=== PATIENT | male | born 1980 | race Caucasian/White ===

== ENCOUNTER 2017-05-03 23:58 | Emergency (ER) | payer OTHER ==
[~2017-05-03] VITALS: Ht 172.7 cm; Wt 188.2 kg
[~2017-05-03 23:58] MED LIST: ALBU90OI INH; AMOCLA875 PO; ATEN50 PO; CEPH500 PO; CIPR500 PO; CLIN300 PO; CYCL10 PO; Flexeril 10 mg10 MG PO; HYDACE5 PO; HYDCHL12.5 PO; HYDR1TAB94 PO; IBUP800 PO; LIDO2L SS; LISI20 PO; METF500 PO; METPRE4DP PO; Motrin600 MG PO; NAPR550 PO; NEOPOLHCSU OT; Norco 10-325 T1 EACH PO; Norco 5-325 Ta1 EACH PO; Norco 7.5-3251 EACH PO; OMEP20ER PO; OMEP40CA12 PO; OXYACE5T PO; OXYACE7.5T PO; PRED20 PO; PROM25 PO; RXCODGUASY PO; RXCYCL10 PO; RXHYDACE PO; RXNAPNA550 PO; RXNEOPOLHC AU; RXPROM25S PR; SULTRIDS PO; Tenormin50 MG PO
[2017-05-04 01:16] LABS: BASOPHILS ABSOLUTE AUTO 0.03 K/mm3 (0.00-0.23); BASOPHILS PERCENT AUTO 0 % (0-2); EOSINOPHILS ABSOLUTE AUTO 0.11 K/mm3 (0.00-0.68); EOSINOPHILS PERCENT AUTO 1 % (0-6); Hematocrit 41.9 % (37.0-53.0); Hemoglobin 14.6 g/dL (13.5-17.5); IMMATURE GRAN ABSOLUTE AUTO 0.05 K/mm3 (0.00-0.10); IMMATURE GRAN PERCENT AUTO 1 % (0-1); LYMPHOCYTES ABSOLUTE AUTO 2.68 K/mm3 (0.84-5.20); LYMPHOCYTES PERCENT AUTO 25 % (21-46); MONOCYTES ABSOLUTE AUTO 0.87 K/mm3 (0.16-1.47); MONOCYTES PERCENT AUTO 8 % (4-13); Mean Corpuscular HGB 29.5 pg (26.0-34.0); Mean Corpuscular HGB Conc 34.8 g/dL (31.5-36.5); Mean Corpuscular Volume 85 fL (80-100); Mean Platelet Volume 10.7 fL (9.1-12.4); NEUTROPHILS ABSOLUTE AUTO 6.83 K/mm3 (1.96-9.15); NEUTROPHILS PERCENT AUTO 65 % (41-73); Platelet Count 263 K/mm3 (150-400); RDW Coefficient Variation 12.9 % (11.7-14.2); RDW Standard Deviation 39.6 fL (35.1-46.3); Red Blood Cell Count 4.95 M/mm3 (4.30-5.90); White Blood Cell Count 10.57 K/mm3 (4.00-11.30)
[2017-05-04 01:35] LABS: Alanine Aminotransfer (ALT/SGP 69 U/L (12-78); Albumin, Blood 3.8 g/dL (3.4-5.0); Alk Phos 66 U/L (50-136); Anion Gap 7 mmol/L (6-16); Aspartate Aminotrans (AST/SGOT 32 U/L (12-37); Bilirubin, Total 0.5 mg/dL (0.1-1.0); Blood Urea Nitrogen 15 mg/dL (8-24); Bun/Creatinine Ratio 17.4 (12.0-20.0); CO2, Blood 27 mmol/L (21-32); Calcium, Blood 8.6 mg/dL (8.5-10.1); Chloride, Blood 105 mmol/L (98-108); Creatinine, Blood 0.86 mg/dL (0.60-1.20); Globulin, Blood 3.8 g/dL (2.2-4.0); Glomerular Filtration Rate >60 (60-); Glucose, Blood 97 mg/dL (70-99); Potassium, Blood 4.4 mmol/L (3.5-5.5); Sodium, Blood 139 mmol/L (136-145); Total Protein, Blood 7.6 g/dL (6.4-8.2); Troponin I <0.015 ng/mL (0.000-0.040)
[2017-05-04] MEDS ORDERED: Tenormin50 MG PO (02:14)
== END 2017-05-04 02:46 | disposition home or self-care (01) ==
LOC: ER 23:58
PROVIDERS: Physician Assistant
DX: I16.0 Hypertensive urgency (principal); R51 Headache; Z79.899 Other long term (current) drug therapy
CPT/HCPCS: 36415; 71046; 80053; 84484; 85025; 93005; 93010; 96374; 96375; 99283; J1100; J1200; J1885; J2765

== ENCOUNTER 2018-12-29 13:21 | Emergency (ER) | payer OTHER ==
[~2018-12-29] VITALS: Ht 172.7 cm; Wt 204.1 kg
[2018-12-29] MEDS ORDERED: Norco 5-325 Ta1 EACH PO (17:51)
== END 2018-12-29 18:15 | disposition home or self-care (01) ==
LOC: ER 13:21
DX: K40.90 Unilateral inguinal hernia, without obstruction or gangrene, not specified as recurrent (principal); K42.9 Umbilical hernia without obstruction or gangrene; I10 Essential (primary) hypertension; Z79.899 Other long term (current) drug therapy
CPT/HCPCS: 36415; 74177; 99283-25; Q9967

== ENCOUNTER 2023-03-26 02:17 | Emergency (ER) | payer OTHER ==
[~2023-03-26] VITALS: Ht 172.7 cm; Wt 224.5 kg
[~2023-03-26 02:17] MED LIST changes: +AZIT250 PO; +HYDCHL25 PO
[2023-03-26] MEDS ORDERED: Prinivil10 MG (02:57)
[2023-03-26 03:10] LABS: BASOPHILS ABSOLUTE AUTO 0.09 K/mm3 (0.00-0.23); BASOPHILS PERCENT AUTO 1 % (0-2); EOSINOPHILS ABSOLUTE AUTO 0.16 K/mm3 (0.00-0.68); EOSINOPHILS PERCENT AUTO 2 % (0-6); Hematocrit 43.3 % (37.0-53.0); IMMATURE GRAN ABSOLUTE AUTO 0.07 K/mm3 (0.00-0.10); IMMATURE GRAN PERCENT AUTO 1 % (0-1); LYMPHOCYTES PERCENT AUTO 29 % (21-46); MONOCYTES ABSOLUTE AUTO 0.82 K/mm3 (0.16-1.47); MONOCYTES PERCENT AUTO 8 % (4-13); Mean Corpuscular HGB 29.5 pg (26.0-34.0); Mean Corpuscular HGB Conc 34.6 g/dL (31.5-36.5); Mean Corpuscular Volume 85 fL (80-100); NEUTROPHILS ABSOLUTE AUTO 5.84 K/mm3 (1.96-9.15); NEUTROPHILS PERCENT AUTO 60 % (41-73); Platelet Count 266 K/mm3 (150-400); RDW Coefficient Variation 12.3 % (11.7-14.2); RDW Standard Deviation 37.4 fL (35.1-46.3); Red Blood Cell Count 5.09 M/mm3 (4.30-5.90); White Blood Cell Count 9.78 K/mm3 (4.00-11.30)
[2023-03-26 03:25] LABS: Albumin, Blood 3.9 g/dL (3.4-5.0); Bilirubin, Total 0.5 mg/dL (0.1-1.0); Bun/Creatinine Ratio 20.4 (12.0-20.0); Creatinine, Blood 0.83 mg/dL (0.60-1.20); Potassium, Blood 4.2 mmol/L (3.5-5.5); Total Protein, Blood 7.9 g/dL (6.4-8.2)
[2023-03-26 05:17] VITALS: BP 144/69
== END 2023-03-26 06:01 | disposition home or self-care (01) ==
LOC: ER 02:17
PROVIDERS: Emergency Medicine
DX: I49.1 Atrial premature depolarization (principal); G47.33 Obstructive sleep apnea (adult) (pediatric); Z91.199 Patient's noncompliance with other medical treatment and regimen due to unspecified reason; I10 Essential (primary) hypertension; E11.9 Type 2 diabetes mellitus without complications; Z79.899 Other long term (current) drug therapy; Z79.84 Long term (current) use of oral hypoglycemic drugs
CPT/HCPCS: 71046; 80053; 84484; 85025; 93005; 93010; 96374; 96376; 99285-25; A9270; J0360

== ENCOUNTER → 2023-06-12 | Outpatient (CLI) | payer OTHER ==
[~2023-06-12] MED LIST changes: +ACYC400 PO; +FLUC200 PO; +Keflex250 MG PO; +Mupirocin22 GM TOP; +OXYC5 PO; +Prinivil10 MG; +Vibramycin100 MG PO
== END ==
LOC: LAB SHORT 15:15 → LAB 15:15
DX: N34.1 Nonspecific urethritis (principal)
CPT/HCPCS: 87070; 87077; 87147; 87186; 87205

== ENCOUNTER 2023-06-13 18:57 | Emergency (ER) | payer OTHER ==
[~2023-06-13] VITALS: Ht 172.7 cm; Wt 217.7 kg
[~2023-06-13 18:57] MED LIST changes: -ACYC400 PO; -FLUC200 PO; -Keflex250 MG PO; -Mupirocin22 GM TOP; -OXYC5 PO; -Vibramycin100 MG PO
[2023-06-13 19:19] VITALS: BP 160/89
[2023-06-13] MEDS ORDERED: FLUC200 PO (19:24)
[2023-06-13] MEDS ORDERED: Keflex250 MG PO (19:24)
[2023-06-13] MEDS ORDERED: CefTRIAXone 1000 MG Vial IM ONE (20:20)
[2023-06-13] MEDS ORDERED: HYDROcodone 5-APAP 325 TAB PO ONE (20:20)
[2023-06-13] MEDS ORDERED: Doxycycline Hyclate 100 MG TAB PO ONE (20:20)
[2023-06-13] MEDS ORDERED: Norco 5-325 Ta1 EACH PO (20:21)
[2023-06-13] MEDS ORDERED: Vibramycin100 MG PO (20:21)
== END 2023-06-13 20:44 | disposition home or self-care (01) ==
LOC: ER 18:57
DX: N48.1 Balanitis (principal); L73.8 Other specified follicular disorders; I10 Essential (primary) hypertension; E11.9 Type 2 diabetes mellitus without complications; E66.01 Morbid (severe) obesity due to excess calories; Z68.45 Body mass index [BMI] 70 or greater, adult; Z79.84 Long term (current) use of oral hypoglycemic drugs; Z79.899 Other long term (current) drug therapy
CPT/HCPCS: 82947; 96372; 99283-25; A9270; J0696

== ENCOUNTER 2023-06-15 18:34 | Emergency (ER) | payer OTHER ==
[~2023-06-15] VITALS: Ht 172.7 cm; Wt 220.0 kg
[~2023-06-15 18:34] MED LIST changes: +FLUC200 PO; +Keflex250 MG PO; +Vibramycin100 MG PO
[2023-06-15 18:51] VITALS: BP 215/94
[2023-06-16] MEDS ORDERED: OxyCODONE 5 mg/Acetamin 325 mg TABLET PO ONE (00:10)
[2023-06-16] MEDS ORDERED: Acyclovir 200 MG Cap PO ONE (00:10)
[2023-06-16] MEDS ORDERED: ACYC400 PO ×2 (00:11→15:15)
[2023-06-16] MEDS ORDERED: OXYC5 PO ×2 (00:11→15:15)
[2023-06-16] MEDS ORDERED: Mupirocin22 GM TOP ×2 (00:11→15:15)
== END 2023-06-16 00:21 | disposition home or self-care (01) ==
LOC: ER 18:34
DX: A60.01 Herpesviral infection of penis (principal)
CPT/HCPCS: 99282; A9270

== ENCOUNTER 2024-08-20 05:44 | Inpatient (IN) | payer OTHER ==
[2024-08-20] VITALS (15 sets, daily range): BP systolic 157–192; BP diastolic 111–171
[~2024-08-20] VITALS: Ht 172.7 cm; Wt 219.6 kg
[~2024-08-20 05:44] MED LIST changes: +ACYC400 PO; +GLUCOPHAGE1000 M1 PO; +Mupirocin22 GM TOP; +OXYC5 PO
[2024-08-20] MEDS ORDERED: dilTIAZem HCL 30 MG TAB PT ONE ×2 (06:20→07:35)
[2024-08-20] MEDS ORDERED: Diltiazem HCl 5 MG / ML 5ML Vial IV ONE ×2 (06:35→07:40)
[2024-08-20 06:51] LABS: BASOPHILS ABSOLUTE AUTO 0.08 K/mm3 (0.00-0.23); BASOPHILS PERCENT AUTO 1 % (0-2); EOSINOPHILS ABSOLUTE AUTO 0.26 K/mm3 (0.00-0.68); EOSINOPHILS PERCENT AUTO 2 % (0-6); Hemoglobin 15.9 g/dL (13.5-17.5); IMMATURE GRAN PERCENT AUTO 1 % (0-1); LYMPHOCYTES ABSOLUTE AUTO 1.14 K/mm3 (0.84-5.20); LYMPHOCYTES PERCENT AUTO 11 % (21-46); MONOCYTES ABSOLUTE AUTO 0.98 K/mm3 (0.16-1.47); MONOCYTES PERCENT AUTO 9 % (4-13); Mean Corpuscular HGB 29.8 pg (26.0-34.0); Mean Corpuscular HGB Conc 33.8 g/dL (31.5-36.5); Mean Corpuscular Volume 88 fL (80-100); Mean Platelet Volume 10.6 fL (9.1-12.4); NEUTROPHILS ABSOLUTE AUTO 8.13 K/mm3 (1.96-9.15); NEUTROPHILS PERCENT AUTO 76 % (41-73); Platelet Count 234 K/mm3 (150-400); RDW Coefficient Variation 13.2 % (11.7-14.2); RDW Standard Deviation 42.9 fL (35.1-46.3); Red Blood Cell Count 5.33 M/mm3 (4.30-5.90); White Blood Cell Count 10.69 K/mm3 (4.00-11.30)
[2024-08-20 07:21] LABS: Albumin, Blood 3.7 g/dL (3.4-5.0); Albumin/Globulin Ratio 0.9 (0.8-1.8); Bilirubin, Total 0.6 mg/dL (0.1-1.0); Bun/Creatinine Ratio 17.5 (12.0-20.0); Calcium, Blood 8.5 mg/dL (8.5-10.1); Creatinine, Blood 0.91 mg/dL (0.60-1.20); Magnesium, Blood 1.8 mg/dL (1.6-2.4); Potassium, Blood 4.4 mmol/L (3.5-5.5); Total Protein, Blood 7.7 g/dL (6.4-8.2)
[2024-08-20 07:45] LABS: Influenza A, PCR NEGATIVE (NEGATIVE); Influenza B, PCR NEGATIVE (NEGATIVE); Resp Syncytial Virus, PCR NEGATIVE (NEGATIVE); SARS-Cov-2 (COVID-19) PCR, MMC NEGATIVE (NEGATIVE)
[2024-08-20] MEDS ORDERED: Scopolamine Hydrobromide Patch TOP ONE (09:35)
[2024-08-20 12:47] LABS: LDL/HDL RATIO 0.9; Very Low Density Lipoprot Chol 8 mg/dL (6-32)
[2024-08-20 12:49] LABS: Cholesterol 116 mg/dL (50-200); HDL Cholesterol 58 mg/dL (>39); Low Density Lipoprotein Chol 50 mg/dL (0-110); Thyroid Stimulating Hormone 0.671 uIU/mL (0.360-4.800); Triglycerides 41 mg/dL (30-160)
[2024-08-20] MEDS ORDERED: DEPO-TESTO200 MG/1 M IM (14:17)
[2024-08-20] MEDS ORDERED: Ondansetron HCl 2 MG / ML 2ML Vial IV PRN (15:05)
[2024-08-20] MEDS ORDERED: Metoprolol Succinate 25 MG TABCR PO ONE (15:40)
[2024-08-20 16:25] LABS: U Amphetamine Screen Not Detected; U Barbituate Screen Not Detected; U Benzodiazapine Screen Not Detected; U Buprenorphine Screen Not Detected; U Cannabinoids Screen DETECTED; U Cocaine Screen Not Detected; U Methadone Screen Not Detected; U Methamphetamine Screen Not Detected; U Opiates Screen Not Detected; U Oxycodone Screen Not Detected; U Phencyclidine Screen Not Detected
[2024-08-20] MEDS ORDERED: Metoprolol Tartrate 1 MG/ML 5 ML VIAL IV PRN (16:30)
--- NOTE | 2024-08-20 17:05 | NUR ---
PT WAS ED ADMIT. PT HAS C/O SOB WHEN AMBULATING. PT ON RA. PT HAS HIGH BLOOD PRESSURE AND AFIB WITH RVR. SEE CHART FOR STRIPTS. MD AWARE AND PRN PUSHES GIVEN, SEE CHART FOR DETAILS.
[2024-08-20] MEDS ORDERED: HydrALAZINE HCl 20 MG / ML 1ML Vial IV PRN ×2 (18:00→23:00)
[2024-08-20] MEDS ORDERED: Diltiazem HCl 5 MG / ML 5ML Vial IV STA (18:11)
[2024-08-20] MEDS ORDERED: dilTIAZem HCL 125 MG in Dextrose 5% 100 ML IV SCH (18:30)
[2024-08-20] MEDS ORDERED: Metoprolol Succinate 25 MG TABCR PO SCH (21:00)
--- NOTE | 2024-08-20 21:13 | NUR ---
SHIFT SUMMARY AT START OF SHIFT, PT LYING IN BED. CONTINUOUS COUGHING FITS. PT STATES HE IS HAVING INTERMITTENT PAIN. PT IS SUPPOSED TO BE TRANSFERRED TO PCU 18. CALLED TO GIVE REPORT, WAS TOLD ROOM IS NOT CLEANED YET, AND WILL BE CALLED BACK ONCE ROOM IS CLEAN. INFORMED PT WHAT ROOM HE WILL BE GOING TO. PT STATES HE IS SCARED. GAVE PT COOL TOWEL FOR COMFORT AND PROVIDED SUPPORT. 1950, REPORT GIVEN TO PCU NURSE, BUT HAD TO BE CHANGED TO PCU 8. WAITING FOR ROOM TO BE CLEANED. PT TAKEN TO PCU 8.
[2024-08-21] VITALS (16 sets, daily range): BP systolic 133–185; BP diastolic 96–133
--- NOTE | 2024-08-21 04:10 | NUR ---
0340- Spoke with Dr. Vu via phone. Notified of continued BP in 170s/100s and no prns available until 0500. Per Provider change parameter to over 180 sytolic to notify provider. Confirmed plan to restart atenolol with AM medications.
[2024-08-21 04:32] LABS: BASOPHILS ABSOLUTE AUTO 0.07 K/mm3 (0.00-0.23); BASOPHILS PERCENT AUTO 1 % (0-2); EOSINOPHILS ABSOLUTE AUTO 0.26 K/mm3 (0.00-0.68); EOSINOPHILS PERCENT AUTO 2 % (0-6); Hematocrit 46.6 % (37.0-53.0); IMMATURE GRAN ABSOLUTE AUTO 0.08 K/mm3 (0.00-0.10); IMMATURE GRAN PERCENT AUTO 1 % (0-1); LYMPHOCYTES ABSOLUTE AUTO 1.44 K/mm3 (0.84-5.20); LYMPHOCYTES PERCENT AUTO 12 % (21-46); MONOCYTES ABSOLUTE AUTO 1.12 K/mm3 (0.16-1.47); MONOCYTES PERCENT AUTO 9 % (4-13); Mean Corpuscular HGB 30.1 pg (26.0-34.0); Mean Corpuscular HGB Conc 34.3 g/dL (31.5-36.5); Mean Corpuscular Volume 88 fL (80-100); Mean Platelet Volume 10.3 fL (9.1-12.4); NEUTROPHILS ABSOLUTE AUTO 8.98 K/mm3 (1.96-9.15); NEUTROPHILS PERCENT AUTO 75 % (41-73); Platelet Count 237 K/mm3 (150-400); RDW Coefficient Variation 13.5 % (11.7-14.2); Red Blood Cell Count 5.31 M/mm3 (4.30-5.90); White Blood Cell Count 11.95 K/mm3 (4.00-11.30)
[2024-08-21 04:50] LABS: Bun/Creatinine Ratio 17.9 (12.0-20.0); Calcium, Blood 8.5 mg/dL (8.5-10.1); Creatinine, Blood 0.67 mg/dL (0.60-1.20); Potassium, Blood 4.2 mmol/L (3.5-5.5)
--- NOTE | 2024-08-21 05:01 | NUR ---
NURSES NOTE: BLOOD PRESSURE CONTINUES TO BE ELEVATED. PATIENT REQUESTED ALBUTEROL BREATHING TREATMENT. DR SUNG MADE AWARE. CONTINUE WITH SCHEDULED BP MEDICATION PER EMAR. WILL ORDER BREATHING TREATMENT FOR PATIENT.
[2024-08-21] MEDS ORDERED: Albuterol 2.5 MG/3 ML VIAL INH PRN (05:05)
--- NOTE | 2024-08-21 06:12 | NUR ---
PATIENT SUMMURY: A/O X4. ON RA WITH SATURATIN >90. BP ELEVATED IN THE 170'S TO 180'S THROUGHOUT THE NIGHT. PHYSICIAN NOTIFIED. MEDICATED PER EMAR PRN ORDER . BP IS GRADUALLY COMING DOWN THIS AM. WAS ON CONTINUEOUS CARDIZEM DRIP THROUGHOUT THE NIGHT. CARDIZEM PAUSED AT 0540 FOR BRIEF HR OF 47.HR RATE IS NOW 110 CARDIZEM RESTARTED AT 0640. AMBULATES TO THE BATHROOM. HAS MODERATE PRODUCTIVE COUGH. BREATHING TREATMENT ORDERED. PATIENT SLEPT ON THE RECLINER CHAIR. CALLS APPROPRIATELY. CALL CARRASCO IS WITHIN REACH.
[2024-08-21] MEDS ORDERED: Atenolol 50 MG Tab PO SCH (09:00)
[2024-08-21] MEDS ORDERED: Enoxaparin 40 MG/0.4 ML SYR SC SCH (09:00)
[2024-08-21] MEDS ORDERED: Furosemide 10 MG / ML 2ML Vial IV ONE (10:00)
[2024-08-21] MEDS ORDERED: Diltiazem HCl 180 MG Cap.CD PO SCH (10:00)
[2024-08-21] MEDS ORDERED: Insulin Human Lispro 100 Units/ML 3ML Syringe SC SCH (11:30)
[2024-08-21] MEDS ORDERED: Acetaminophen 325 MG TABLET PO PRN (12:30)
[2024-08-21] MEDS ORDERED: Furosemide 10 MG/ML 4ML Vial IV SCH (16:00)
[2024-08-21] MEDS ORDERED: Lisinopril 10 MG Tab PO SCH (16:00)
[2024-08-21] MEDS ORDERED: Spironolactone 25 MG Tab PO SCH (16:00)
[2024-08-21] MEDS ORDERED: Empagliflozin 10 MG TAB PO SCH (17:00)
--- NOTE | 2024-08-21 17:08 | NUR ---
SHIFT SUMMARY PT ADMITTED FOR DYSPNEA THAT GETS INCREASED WITH EXERTION, A/OX4, VSS, TOLERATING PO, INDEPENDENT TO THE BATHROOM, CARDIZEM GTT CHANGED TO PO THIS AM AND HIS HR HAS REMAINED IN THE MID 80'S SINCE THE DRIP WAS STOPPED ALTHOUGH IT TOUCHES IN THE LOW 100'S AT TIMES. BP REMAINS ELEVATED THOUGH HIS MOST RECENT BP SHOWS THE DIASTOLIC BELOW 100 FOR THE FIRST TIME TODAY. ADDITIONAL BP MEDS ADDED ON TODAY AND GIVEN PER EMAR. NO ACUTE EVENTS THIS SHIFT, CALL LIGHT IN REACH.
[2024-08-21] MEDS ORDERED: Metoprolol Succinate 50 MG TABCR PO SCH (21:00)
[2024-08-21] MEDS ORDERED: Apixaban 5 MG Tab PO SCH (21:00)
[2024-08-21] MEDS ORDERED: Melatonin 3 MG Tab PO PRN (21:10)
[2024-08-22 00:07] VITALS: BP 139/107
[2024-08-22 04:00] VITALS: BP 132/90
[2024-08-22 04:26] LABS: BASOPHILS ABSOLUTE AUTO 0.07 K/mm3 (0.00-0.23); BASOPHILS PERCENT AUTO 1 % (0-2); EOSINOPHILS ABSOLUTE AUTO 0.25 K/mm3 (0.00-0.68); EOSINOPHILS PERCENT AUTO 3 % (0-6); Hematocrit 50.1 % (37.0-53.0); Hemoglobin 16.7 g/dL (13.5-17.5); IMMATURE GRAN ABSOLUTE AUTO 0.08 K/mm3 (0.00-0.10); IMMATURE GRAN PERCENT AUTO 1 % (0-1); LYMPHOCYTES ABSOLUTE AUTO 1.61 K/mm3 (0.84-5.20); LYMPHOCYTES PERCENT AUTO 17 % (21-46); MONOCYTES ABSOLUTE AUTO 0.99 K/mm3 (0.16-1.47); MONOCYTES PERCENT AUTO 10 % (4-13); Mean Corpuscular HGB 29.3 pg (26.0-34.0); Mean Corpuscular HGB Conc 33.3 g/dL (31.5-36.5); Mean Corpuscular Volume 88 fL (80-100); Mean Platelet Volume 10.3 fL (9.1-12.4); NEUTROPHILS ABSOLUTE AUTO 6.77 K/mm3 (1.96-9.15); NEUTROPHILS PERCENT AUTO 69 % (41-73); Platelet Count 248 K/mm3 (150-400); RDW Coefficient Variation 13.3 % (11.7-14.2); Red Blood Cell Count 5.69 M/mm3 (4.30-5.90); White Blood Cell Count 9.77 K/mm3 (4.00-11.30)
[2024-08-22 04:45] LABS: Albumin, Blood 3.9 g/dL (3.4-5.0); Anion Gap 9 mmol/L (3-11); Blood Urea Nitrogen 16 mg/dL (8-24); CO2, Blood 25 mmol/L (21-32); Calcium, Blood 9.3 mg/dL (8.5-10.1); Chloride, Blood 102 mmol/L (98-108); Creatinine, Blood 0.89 mg/dL (0.60-1.20); Glomerular Filtration Rate 110 (60-); Glucose, Blood 78 mg/dL (70-99); Magnesium, Blood 2.1 mg/dL (1.6-2.4); Phosphorus, Blood 4.9 mg/dL (2.5-4.9); Potassium, Blood 4.1 mmol/L (3.5-5.5); Sodium, Blood 132 mmol/L (136-145)
--- NOTE | 2024-08-22 05:31 | NUR ---
A/O X4. O2 SATURATION >90 ON RA. BP STABLE WITH MAP >65. DENIES PAIN. REQUESTED SLEEP AID AT BED TIME AND STATES THAT HE SLEPT WELL. HR AFIB IN THE 80'S -90'S WHEN UP. DENIES CHEST PAIN. CALLS APPROPRIATELY. CALL CARRASCO IS WITHIN REACH. SLEPT ON THE RECLINER CHAIRS STATES THAT HE IS MORE COMFORTABLE ON THE RECLINER CHAIR.
[2024-08-22] MEDS ORDERED: Omeprazole 20 MG CapCR PO SCH (06:00)
--- NOTE | 2024-08-22 07:02 | NUR ---
SPOKE WITH PT REGARDING ACCURATE I&OS, DIFFICULTY WITH HAT OR URINAL. WILL CONTINUE TO REINFORCE
[2024-08-22 07:17] VITALS: BP 113/72
[2024-08-22 11:36] VITALS: BP 129/99
[2024-08-22 17:40] VITALS: BP 154/90
--- NOTE | 2024-08-22 18:09 | NUR ---
SHIFT SUMMARY PATIENT IS AOX4 ABLE TO MAKE NEEDS KNOWN. HE DENIES CHEST PAIN OR SOB. HE IS INDEPENDENT IN THE ROOM. HIS HR IS AFIB CONTROLLED AT REST IN THE 90s AND WITH ACTIVITY HIS HR RATE GETS UP TO 120s and 130s. THE HOSPITALIST SPOKE WITH THE PATIENT AND FAMILY AT BEDSIDE AND EDUCATED THEM ON MANAGMENT OF CHF. THE HOSPITALIST WAS INFORMED ABOUT RIGHT LOWER LEG PAIN SWELLING AND REDDNESS. A LOWER EXTREMITY US WAS ORDERED FOR DVT RULEOUT.
[2024-08-22 20:21] VITALS: BP 156/105
--- NOTE | 2024-08-22 21:53 | NUR ---
REPORT RECEIVED FROM LETTY AND AWAITING PT T/F TO ROOM 309.
--- NOTE | 2024-08-22 22:17 | NUR ---
PATIENT TRANSFER: PATIENT TRANSFERED TO ROOM 309 VIA BARIATRIC BED. REPORT GIVEN TO SANTANA BLANCHARD.
[2024-08-23] VITALS (9 sets, daily range): BP systolic 118–165; BP diastolic 94–126
--- NOTE | 2024-08-23 05:02 | NUR ---
T/F AND SUMMARY: PT T/F TO ROOM 309 VIA BARIATRIC BED AT 2200. HE WAS ORIENTED TO NEW ROOM AND CALL SYSTEM AND THIS RN AGREES TO TRAVELING CONSTRUCTION SUPERINTENDENT'S SHIFT ASSESSMENT FINGDINGS. HE'S A/OX4, ENDORSES NEEDS AND IS PLEASANT AND COOPERATIVE W/CARE. PT UP AD LULY IN ROOM AND IS AWARE OF LIMITATIONS. HE'S SLIGHTLY SOB W/ EXERTION BUT RECOVERS AT REST, SPO2 WNL ON RA. BILAT COARSE LS AUSCULTATED AND PT HAS SCATTERED L.LOBE WHEEZES. RT PROVIDING MEDS PER EMAR. PT REMAINS AFIB ON TELE, RATE CONTROLLED AT 90'S BPM. STRICT I/O'S MAINTAINED FOR EF 35% (PER TRAVELING CONSTRUCTION SUPERINTENDENT REPORT). BP SLIGHTLY ELEVATED W/PRN HYDRALAZINE RECEIVED PER EMAR. NO ACUTE CHANGES, VSS/AFEBRILE. PT DENIES PAIN/COMPLAINTS. WILL REPORT TO DAY RN.
[2024-08-23 08:54] LABS: BASOPHILS ABSOLUTE AUTO 0.08 K/mm3 (0.00-0.23); BASOPHILS PERCENT AUTO 1 % (0-2); EOSINOPHILS ABSOLUTE AUTO 0.12 K/mm3 (0.00-0.68); EOSINOPHILS PERCENT AUTO 1 % (0-6); Hematocrit 49.4 % (37.0-53.0); Hemoglobin 17.1 g/dL (13.5-17.5); IMMATURE GRAN PERCENT AUTO 1 % (0-1); LYMPHOCYTES ABSOLUTE AUTO 1.68 K/mm3 (0.84-5.20); LYMPHOCYTES PERCENT AUTO 14 % (21-46); MONOCYTES ABSOLUTE AUTO 0.84 K/mm3 (0.16-1.47); MONOCYTES PERCENT AUTO 7 % (4-13); Mean Corpuscular HGB 29.9 pg (26.0-34.0); Mean Corpuscular HGB Conc 34.6 g/dL (31.5-36.5); Mean Corpuscular Volume 86 fL (80-100); Mean Platelet Volume 10.2 fL (9.1-12.4); NEUTROPHILS ABSOLUTE AUTO 8.99 K/mm3 (1.96-9.15); NEUTROPHILS PERCENT AUTO 76 % (41-73); Platelet Count 281 K/mm3 (150-400); RDW Coefficient Variation 13.2 % (11.7-14.2); RDW Standard Deviation 40.6 fL (35.1-46.3); Red Blood Cell Count 5.72 M/mm3 (4.30-5.90); White Blood Cell Count 11.81 K/mm3 (4.00-11.30)
[2024-08-23] MEDS ORDERED: Furosemide 10 MG/ML 4ML Vial IV SCH (09:00)
[2024-08-23] MEDS ORDERED: Lisinopril 20 MG Tab PO SCH (09:00)
[2024-08-23 09:14] LABS: Albumin, Blood 3.7 g/dL (3.4-5.0); Anion Gap 13 mmol/L (3-11); Blood Urea Nitrogen 22 mg/dL (8-24); Bun/Creatinine Ratio 28.2 (12.0-20.0); CO2, Blood 19 mmol/L (21-32); Calcium, Blood 8.8 mg/dL (8.5-10.1); Chloride, Blood 103 mmol/L (98-108); Creatinine, Blood 0.78 mg/dL (0.60-1.20); Glomerular Filtration Rate 115 (60-); Glucose, Blood 99 mg/dL (70-99); Magnesium, Blood 2.1 mg/dL (1.6-2.4); Phosphorus, Blood 3.5 mg/dL (2.5-4.9); Potassium, Blood 4.6 mmol/L (3.5-5.5); Sodium, Blood 130 mmol/L (136-145)
[2024-08-23] MEDS ORDERED: Spironolactone 25 MG Tab PO ONE (14:00)
--- NOTE | 2024-08-23 16:27 | NUR ---
THIS RN GAVE REPORT TO SANTANA SANCHEZ AT 1615. DANIEL TO ASSUME CARE OF PT.
--- NOTE | 2024-08-23 16:28 | NUR ---
SHIFT SUMMARY PT A&OX4, VSS, AMB IND, TOLERATING PO, VOIDING, AND DENIED PAIN. CPAP ORDER RECEIVED AND RESPIRATORY SET IT UP IN ROOM. UPDATED EMAR W/ CHANGES ON MEDS. NO OTHER ACUTE CHANGES. CALL LIGHT WITHIN REACH AND PT ABLE TO MAKE NEEDS KNOWN.
--- NOTE | 2024-08-23 16:40 | NUR ---
ASSUMED CARE OF PATIENT. REPORT RECEIVED FROM SANTANA SALES.
[2024-08-23] MEDS ORDERED: Furosemide 10 MG / ML 2ML Vial IV SCH (18:00)
[2024-08-24] VITALS (7 sets, daily range): BP systolic 129–166; BP diastolic 75–107
--- NOTE | 2024-08-24 04:17 | NUR ---
SHIFT SUMMARY DARREN WAS ALERT AND FULLY ORIENTED ON ASSESSMENT. PT STILL IN AFIB, NO ALERTS FROM TELE TONIGHT. PT HAS SOB WITH EXERTION, BUT NOT ADELA REST. PT DENIES PAIN, AND STATES THAT HE FEELS MUCH BETTER THAN PREVIOUS DAYS. NO ACUTE EVENTS TONIGHT. PT RESTING WITH CALL LIGHT IN REACH.
[2024-08-24 04:51] LABS: BASOPHILS ABSOLUTE AUTO 0.08 K/mm3 (0.00-0.23); BASOPHILS PERCENT AUTO 1 % (0-2); EOSINOPHILS ABSOLUTE AUTO 0.16 K/mm3 (0.00-0.68); EOSINOPHILS PERCENT AUTO 1 % (0-6); Hematocrit 49.5 % (37.0-53.0); IMMATURE GRAN ABSOLUTE AUTO 0.09 K/mm3 (0.00-0.10); IMMATURE GRAN PERCENT AUTO 1 % (0-1); LYMPHOCYTES ABSOLUTE AUTO 2.11 K/mm3 (0.84-5.20); LYMPHOCYTES PERCENT AUTO 19 % (21-46); MONOCYTES ABSOLUTE AUTO 1.11 K/mm3 (0.16-1.47); MONOCYTES PERCENT AUTO 10 % (4-13); Mean Corpuscular HGB 30.1 pg (26.0-34.0); Mean Corpuscular HGB Conc 34.3 g/dL (31.5-36.5); Mean Corpuscular Volume 88 fL (80-100); Mean Platelet Volume 10.3 fL (9.1-12.4); NEUTROPHILS ABSOLUTE AUTO 7.71 K/mm3 (1.96-9.15); NEUTROPHILS PERCENT AUTO 69 % (41-73); Platelet Count 317 K/mm3 (150-400); RDW Standard Deviation 41.4 fL (35.1-46.3); Red Blood Cell Count 5.64 M/mm3 (4.30-5.90); White Blood Cell Count 11.26 K/mm3 (4.00-11.30)
[2024-08-24 05:24] LABS: Bun/Creatinine Ratio 26.4 (12.0-20.0); Calcium, Blood 9.3 mg/dL (8.5-10.1); Creatinine, Blood 1.06 mg/dL (0.60-1.20)
[2024-08-24] MEDS ORDERED: Spironolactone 50 MG Tab PO SCH (09:00)
[2024-08-24] MEDS ORDERED: dilTIAZem HCL 60 MG TAB PO ONE (10:00)
[2024-08-24 13:52] LABS: Bun/Creatinine Ratio 25.2 (12.0-20.0); Calcium, Blood 9.3 mg/dL (8.5-10.1); Creatinine, Blood 1.11 mg/dL (0.60-1.20); Potassium, Blood 4.3 mmol/L (3.5-5.5)
--- NOTE | 2024-08-24 17:08 | NUR ---
PT IS AOX4 AND INDEPENDENT IN ROOM. PT CONTINUES TO HAVE RANDOM SPIKES WITH HR UP TO 150 AT EARLIER PART OF SHIFT. DR HERNANDEZ WAS NOTIFIED AND ADDED MEDICATION TO EMAR. HR THEN WAS IN THE 70-80s AND SYSLTOLIC WAS 120s PT REPORTED FEELING FUZZY NOT NORMAL. DR HERNANDEZ NOTIFIED AND ORDERED TO MONITOR PT. PT IS SITTING RESTING WATCHING TV. WILL CONINTUE TO MONITOR. ABLE TO USE CALL LIGHT AND MAKE NEEDS KNOWN.
[2024-08-25] VITALS (8 sets, daily range): BP systolic 115–150; BP diastolic 78–106
--- NOTE | 2024-08-25 04:15 | NUR ---
SHIFT SUMMARY PT ALERT AND ORIENTED TIMES 4. PT IS ADMITTED FOR SOB AFIB /RVR. PT HAS TELE READING A-FLUTTER 82 W/BB. PT TOOK SHOWER THIS EVENING. PT HAS LEFT FOREARM IV. PT PREFERS TO SLEEP IN CHAIR. PT TRIED TO WEAR C-PAP AT NIGHT BUT DID NOT . ABLE TO AMBULATE TO TOILET INDEPENDENTLY . CALL LIGHT WITHIN REACH, RAILS TIMES 2, BED IN LOW POSITION.
[2024-08-25 05:07] LABS: BASOPHILS ABSOLUTE AUTO 0.09 K/mm3 (0.00-0.23); BASOPHILS PERCENT AUTO 1 % (0-2); EOSINOPHILS ABSOLUTE AUTO 0.16 K/mm3 (0.00-0.68); EOSINOPHILS PERCENT AUTO 1 % (0-6); Hematocrit 52.4 % (37.0-53.0); Hemoglobin 18.2 g/dL (13.5-17.5); IMMATURE GRAN ABSOLUTE AUTO 0.09 K/mm3 (0.00-0.10); IMMATURE GRAN PERCENT AUTO 1 % (0-1); LYMPHOCYTES ABSOLUTE AUTO 2.44 K/mm3 (0.84-5.20); LYMPHOCYTES PERCENT AUTO 21 % (21-46); MONOCYTES ABSOLUTE AUTO 1.09 K/mm3 (0.16-1.47); MONOCYTES PERCENT AUTO 9 % (4-13); Mean Corpuscular HGB 30.1 pg (26.0-34.0); Mean Corpuscular HGB Conc 34.7 g/dL (31.5-36.5); Mean Corpuscular Volume 87 fL (80-100); NEUTROPHILS ABSOLUTE AUTO 7.84 K/mm3 (1.96-9.15); NEUTROPHILS PERCENT AUTO 67 % (41-73); Platelet Count 335 K/mm3 (150-400); RDW Coefficient Variation 13.1 % (11.7-14.2); RDW Standard Deviation 40.4 fL (35.1-46.3); Red Blood Cell Count 6.05 M/mm3 (4.30-5.90); White Blood Cell Count 11.71 K/mm3 (4.00-11.30)
[2024-08-25 05:24] LABS: Albumin, Blood 4.2 g/dL (3.4-5.0); Anion Gap 13 mmol/L (3-11); Blood Urea Nitrogen 31 mg/dL (8-24); Bun/Creatinine Ratio 29.5 (12.0-20.0); CO2, Blood 23 mmol/L (21-32); Calcium, Blood 9.3 mg/dL (8.5-10.1); Chloride, Blood 100 mmol/L (98-108); Creatinine, Blood 1.05 mg/dL (0.60-1.20); Glomerular Filtration Rate 91 (60-); Glucose, Blood 107 mg/dL (70-99); Magnesium, Blood 2.4 mg/dL (1.6-2.4); Sodium, Blood 132 mmol/L (136-145)
[2024-08-25] MEDS ORDERED: Digoxin 0.25 MG in NS 4 ML IV SCH (08:30)
[2024-08-25] MEDS ORDERED: TraZODone HCl 50 MG Tab PO PRN (11:00)
--- NOTE | 2024-08-25 16:59 | NUR ---
PT HAS BEEN AOX4 AND COOPERATIVE OF CARE. PT INDEPENDENT TO ROOM. HAVE HAD LESS SPIKES TO THE 150s TODAY WHEN PT AMBULATES TO RESTROOM. PT IS ABLE TO MAKE ALL NEEDS KNOWN. CALL LIGHT IS IN REACH WILL CONTINUE TO MONITOR.
[2024-08-25] MEDS ORDERED: Furosemide 40 MG Tab PO SCH (18:00)
--- NOTE | 2024-08-25 18:51 | NUR ---
PT HAD EPISODE OF INCREASED HR UP TO 15 AND THEN SUSTAINED 12Os WHILE AMBULATING IN ROOM. DR ANDERSON NOTIFIED AND MADE CHANGES TO EMAR.
[2024-08-25] MEDS ORDERED: Carvedilol 25 MG Tab PO SCH (21:00)
[2024-08-26 04:17] VITALS: BP 127/88
--- NOTE | 2024-08-26 05:41 | NUR ---
SHIFT SUMMARY PT ALERT AND ORIENTED TIMES 4. PT IS ADMITTED FOR SOB AFIB /RVR. PT IS ON TELE. PT TOOK SHOWER THIS EVENING. PT HAS LEFT FOREARM IV. PT PREFERS TO SLEEP IN CHAIR. PT TRIED TO WEAR C-PAP AT NIGHT BUT DID NOT . ABLE TO AMBULATE TO TOILET INDEPENDENTLY . PT HAD AN EPISODE OF HEART PAUSE FOR 2.6 SEC PER FLAT SORTER PROCESSOR. PT HAD MED CHANGES THIS EVENING. CALL LIGHT WITHIN REACH, RAILS TIMES 2, BED IN LOW POSITION.
[2024-08-26 05:50] LABS: BASOPHILS ABSOLUTE AUTO 0.09 K/mm3 (0.00-0.23); BASOPHILS PERCENT AUTO 1 % (0-2); EOSINOPHILS PERCENT AUTO 1 % (0-6); Hematocrit 50.1 % (37.0-53.0); Hemoglobin 17.3 g/dL (13.5-17.5); IMMATURE GRAN ABSOLUTE AUTO 0.09 K/mm3 (0.00-0.10); IMMATURE GRAN PERCENT AUTO 1 % (0-1); LYMPHOCYTES ABSOLUTE AUTO 2.44 K/mm3 (0.84-5.20); LYMPHOCYTES PERCENT AUTO 20 % (21-46); MONOCYTES ABSOLUTE AUTO 0.85 K/mm3 (0.16-1.47); MONOCYTES PERCENT AUTO 7 % (4-13); Mean Corpuscular HGB Conc 34.5 g/dL (31.5-36.5); Mean Corpuscular Volume 87 fL (80-100); NEUTROPHILS ABSOLUTE AUTO 8.73 K/mm3 (1.96-9.15); NEUTROPHILS PERCENT AUTO 71 % (41-73); Platelet Count 289 K/mm3 (150-400); RDW Standard Deviation 40.4 fL (35.1-46.3); Red Blood Cell Count 5.77 M/mm3 (4.30-5.90)
[2024-08-26 06:27] LABS: Anion Gap 14 mmol/L (3-11); Blood Urea Nitrogen 35 mg/dL (8-24); Bun/Creatinine Ratio 28.2 (12.0-20.0); CO2, Blood 23 mmol/L (21-32); Calcium, Blood 9.1 mg/dL (8.5-10.1); Chloride, Blood 100 mmol/L (98-108); Creatinine, Blood 1.24 mg/dL (0.60-1.20); Digoxin (Lanoxin) 1.69 ug/mL (0.80-2.00); Glomerular Filtration Rate 75 (60-); Glucose, Blood 95 mg/dL (70-99); Potassium, Blood 4.5 mmol/L (3.5-5.5); Sodium, Blood 132 mmol/L (136-145)
[2024-08-26 07:24] VITALS: BP 148/96
[2024-08-26] MEDS ORDERED: Digoxin 0.125 MG Tab PO SCH (09:00)
[2024-08-26] MEDS ORDERED: Lisinopril 20 MG Tab PO SCH (09:00)
[2024-08-26] MEDS ORDERED: Spironolactone 25 MG Tab PO SCH (09:00)
[2024-08-26] MEDS ORDERED: OMEP20ER PO (10:23)
[2024-08-26] MEDS ORDERED: ELIQUIS5 M2 PO (10:24)
[2024-08-26] MEDS ORDERED: Acetaminophen325 M1 PO (10:24)
[2024-08-26] MEDS ORDERED: JARDIANCE10 MG PO (10:25)
[2024-08-26] MEDS ORDERED: LISI20 PO (10:25)
[2024-08-26] MEDS ORDERED: CARV25 PO (10:25)
[2024-08-26] MEDS ORDERED: FURO40 PO (10:25)
[2024-08-26] MEDS ORDERED: SPIR25 PO (10:26)
[2024-08-26] MEDS ORDERED: MELA3 PO (10:26)
[2024-08-26] MEDS ORDERED: TRAZ50 PO (10:26)
--- NOTE | 2024-08-26 15:20 | NUR ---
SHIFT SUMMARY PATIENT DISCHARGED TODAY, HOME WITH FRIEND TO DRIVE HIM. A/OX4, AMBULATORY. DISCHARGE PACKET GIVEN AND REVIEWED, QUESTIONS ANSWERED, VERBALIZED UNDERSTANDING. IV REMOVED WITHOUT COMPLICATION.
[2024-08-28 01:27] LABS: ERYTHROPOIETIN 3 mU/mL (4-27)
== END 2024-08-26 12:50 | disposition home or self-care (01) | DRG 308 ==
LOC: ER 05:44 → PCU 05:46 → MEDS 05:46 → PCU 20:47 → MEDS 08-22 22:00
PROVIDERS: Emergency Medicine; Internal Medicine; ADMIT Family Medicine
DX: I48.91 Unspecified atrial fibrillation (principal); I50.21 Acute systolic (congestive) heart failure; E87.1 Hypo-osmolality and hyponatremia; Z68.45 Body mass index [BMI] 70 or greater, adult; E11.9 Type 2 diabetes mellitus without complications; F17.210 Nicotine dependence, cigarettes, uncomplicated; I11.0 Hypertensive heart disease with heart failure; G47.33 Obstructive sleep apnea (adult) (pediatric); E66.813 Obesity, class 3; Z91.199 Patient's noncompliance with other medical treatment and regimen due to unspecified reason; Z98.890 Other specified postprocedural states; Z79.84 Long term (current) use of oral hypoglycemic drugs; Z79.899 Other long term (current) drug therapy
CPT/HCPCS: 0241U; 36415; 71260; 80048; 80053; 80061; 80069; 80162; 82668; 82947; 83036; 83735; 83880; 84443; 84484; 85025; 93005; 93010; 93306; 93970; 94640; 94660; 94664; 94762; 96372; 96374; 96375; 96376; 99285-25; A9270; G0378; J0360; J1160; J1650; J1938; J1940; Q9967

== ENCOUNTER 2024-09-06 11:57 | Inpatient (IN) | payer OTHER ==
[~2024-09-06] VITALS: Ht 172.7 cm; Wt 206.0 kg
[2024-09-09 07:45] VITALS: BP 147/71
== END 2024-09-09 15:05 | disposition home or self-care (01) | DRG 683 ==
LOC: ER 11:57 → MEDS 21:47 → PCU 21:47 → MEDS 09-08 22:28
PROVIDERS: ADMIT Internal Medicine
DX: N17.9 Acute kidney failure, unspecified (principal); E87.1 Hypo-osmolality and hyponatremia; I50.22 Chronic systolic (congestive) heart failure; I48.20 Chronic atrial fibrillation, unspecified; E87.5 Hyperkalemia; I11.0 Hypertensive heart disease with heart failure; E66.813 Obesity, class 3; G47.33 Obstructive sleep apnea (adult) (pediatric); K21.9 Gastro-esophageal reflux disease without esophagitis; E11.9 Type 2 diabetes mellitus without complications; Z79.84 Long term (current) use of oral hypoglycemic drugs; Z79.01 Long term (current) use of anticoagulants; Z79.899 Other long term (current) drug therapy; Z79.811 Long term (current) use of aromatase inhibitors; Z98.890 Other specified postprocedural states; Z87.19 Personal history of other diseases of the digestive system; Z68.23 Body mass index [BMI] 23.0-23.9, adult